=== PATIENT | female | born 1955 | race Caucasian/White ===

== ENCOUNTER → 2024-05-10 10:41 | Outpatient (REF) | payer BC, SELFPAY | LOC: WDC 10:41 | PROVIDERS: ATTENDING PHYSICIAN Obstetrics & Gynecology Gynecology; FAMILY PHYSICIAN Internal Medicine | DX: Z12.31 Encounter for screening mammogram for malignant neoplasm of breast (principal) | CPT/HCPCS: 77063; 77067 ==

== ENCOUNTER → 2024-05-29 20:21 | Outpatient (REF) | payer BC, SELFPAY | LOC: MRI 20:21 | PROVIDERS: ATTENDING PHYSICIAN Psychiatry & Neurology Neurology; FAMILY PHYSICIAN Internal Medicine | DX: R41.89 Other symptoms and signs involving cognitive functions and awareness (principal) | CPT/HCPCS: 70553; A9575 ==

== ENCOUNTER → 2024-11-27 16:09 | Outpatient (REF) | payer MEDICARE, SELFPAY | LOC: RAD 16:09 | PROVIDERS: ATTENDING PHYSICIAN Internal Medicine | DX: M54.50 Low back pain, unspecified (principal); M76.10 Psoas tendinitis, unspecified hip; M76.12 Psoas tendinitis, left hip | CPT/HCPCS: 72110; 73502 ==

== ENCOUNTER → 2025-05-16 11:06 | Outpatient (REF) | payer MEDICARE, SELFPAY | LOC: WDC 11:06 | PROVIDERS: ATTENDING PHYSICIAN Obstetrics & Gynecology Gynecology; FAMILY PHYSICIAN Internal Medicine | DX: Z12.31 Encounter for screening mammogram for malignant neoplasm of breast (principal) | CPT/HCPCS: 77063; 77067 ==